=== PATIENT | male | born 1940 | race Asian ===

== ENCOUNTER 2016-09-03 09:07 | Inpatient (IN) | payer MEDICARE, OTHER ==
[~2016-09-03] VITALS: Ht 162.6 cm; Wt 84.4 kg
[2016-09-03] MEDS ORDERED: SODIUM CHLORIDE FLUSH 10ML SYR IVF ONE (09:30)
[2016-09-03] MEDS ORDERED: SODIUM CHLORIDE 0.9% 1,000ML IVBOLUS ONE (09:30)
[2016-09-03] MEDS ORDERED: ADENOSINE 6 MG/2 ML IVPush ONE (09:30)
[2016-09-03] MEDS ORDERED: ADENOSINE 6 MG/2 ML ONE (09:48)
[2016-09-03] MEDS ORDERED: DILTIAZEM 5 MG/ML, 5ML ONE (09:54)
[2016-09-03] MEDS ORDERED: DILTIAZEM 5 MG/ML, 5ML IVPush ONE (10:00)
[2016-09-03 10:20] LABS: PATH.CAST-FLAG NOT PRESENT; SPERM-FLAG NOT PRESENT; SRC-FLAG NOT PRESENT; XTAL-FLAG NOT PRESENT; YLC-FLAG NOT PRESENT
[2016-09-03 10:22] LABS: ASPARTATE AMINO TRANSFERASE 30 U/L (15-37); BLOOD UREA NITROGEN 26 mg/dL (7-18)
[2016-09-03 10:29] LABS: IS PT STATUS REG ER OR PRE ER? YES
[2016-09-03 10:32] LABS: DIFF TOTAL CELLS COUNTED 100 CELL DIFF
[2016-09-03 10:34] LABS: VERIFY COUNTS? YES
[2016-09-03] MEDS ORDERED: CEFTRIAXONE PMX 1GM/50ML 50 ML IVPB ONE (11:00)
[2016-09-03] MEDS ORDERED: MAGNESIUM SULFATE PMX 2GM/50ML 50 ML IV ONE ×2 (11:00→12:30)
[2016-09-03] MEDS ORDERED: ASPIRIN 81 MG TABLET CHEW ONE (11:13)
[2016-09-03] MEDS ORDERED: CEFTRIAXONE PMX 1GM/50ML 50 ML ONE (11:13)
[2016-09-03] MEDS ORDERED: ONDANSETRON ODT 4 MG PO PRN (12:30)
[2016-09-03] MEDS ORDERED: ACETAMINOPHEN 325 MG TABLET PO PRN (12:30)
[2016-09-03] MEDS ORDERED: ONDANSETRON 2MG/ML, 2ML IVPush PRN (12:30)
[2016-09-03 13:05] VITALS: BP 119/79
[2016-09-03] MEDS: POTASSIUM CHLORIDE 20 MEQ in SODIUM CHLORIDE 0.9% 1,000 ML IV SCH ×2 (13:23→23:42)
[2016-09-03] MEDS: ENOXAPARIN 40 MG/0.4 ML SQ SCH (13:24)
[2016-09-03 15:12] LABS: IS PT STATUS REG ER OR PRE ER? NO
[2016-09-03 19:31] VITALS: BP 127/79
[2016-09-03 21:03] LABS: IS PT STATUS REG ER OR PRE ER? NO
[2016-09-04 02:25] VITALS: BP 108/70
[2016-09-04 05:04] LABS: ASPARTATE AMINO TRANSFERASE 32 U/L (15-37); BLOOD UREA NITROGEN 24 mg/dL (7-18)
[2016-09-04 05:13] LABS: IS PT STATUS REG ER OR PRE ER? NO
[2016-09-04] MEDS ORDERED: ASPIRIN 81 MG TABLET EC PO SCH (06:00)
[2016-09-04 07:47] VITALS: BP 128/82
[2016-09-04] MEDS: POTASSIUM CHLORIDE 20 MEQ in SODIUM CHLORIDE 0.9% 1,000 ML IV SCH ×2 (09:00→15:40)
[2016-09-04] MEDS: ASPIRIN 81 MG TABLET EC PO SCH (09:05)
[2016-09-04] MEDS: CEFTRIAXONE PMX 1GM/50ML 50 ML IV SCH (12:19)
[2016-09-04 12:45] VITALS: BP 155/92
[2016-09-04] MEDS: ENOXAPARIN 40 MG/0.4 ML SQ SCH (13:30)
[2016-09-04 13:34] VITALS: BP 129/82
[2016-09-04] MEDS ORDERED: TAMS0.4C2 PO (16:21)
[2016-09-04] MEDS ORDERED: SIMV20TA3 PO (16:21)
[2016-09-04] MEDS ORDERED: FINA5TAB4 PO (16:21)
[2016-09-04] MEDS: SODIUM CHLORIDE 0.9% 1,000 ML IV SCH (16:39)
[2016-09-04 20:00] VITALS: BP 137/91
[2016-09-04] MEDS ORDERED: SIMVASTATIN 20 MG TABLET PO SCH (21:00)
[2016-09-05 01:41] VITALS: BP 142/94
[2016-09-05 05:12] LABS: BLOOD UREA NITROGEN 17 mg/dL (7-18)
[2016-09-05 05:17] LABS: ASPARTATE AMINO TRANSFERASE 33 U/L (15-37)
[2016-09-05] MEDS: SODIUM CHLORIDE 0.9% 1,000 ML IV SCH (06:05)
[2016-09-05] MEDS ORDERED: REGADENOSON 0.4 MG/5 ML SYRINGE ONE (07:57)
[2016-09-05] MEDS: ASPIRIN 81 MG TABLET EC PO SCH (08:20)
[2016-09-05] MEDS ORDERED: TAMSULOSIN 0.4 MG CAP.ER.24H PO SCH (09:00)
[2016-09-05] MEDS ORDERED: FINASTERIDE 5 MG TABLET PO SCH (09:00)
[2016-09-05 11:24] VITALS: BP 150/90
[2016-09-05] MEDS: CEFTRIAXONE PMX 1GM/50ML 50 ML IV SCH (11:37)
[2016-09-05 13:57] VITALS: BP 167/99
[2016-09-05] MEDS: ENOXAPARIN 40 MG/0.4 ML SQ SCH (13:58)
[2016-09-05] MEDS ORDERED: CEFD300C37 PO (14:49)
[2016-09-06] MEDS ORDERED: ASPI-650 PO (15:44)
== END 2016-09-05 17:44 | disposition home or self-care (01) | DRG 872 ==
LOC: ED 09:32 → EDIP 11:11 → 5SO 12:47
PROVIDERS: ADMIT Internal Medicine; ATTEND Internal Medicine
DX: A41.9 Sepsis, unspecified organism (principal); E78.5 Hyperlipidemia, unspecified; E83.39 Other disorders of phosphorus metabolism; E83.42 Hypomagnesemia; E87.6 Hypokalemia; I48.0 Paroxysmal atrial fibrillation; N30.91 Cystitis, unspecified with hematuria; R33.8 Other retention of urine; N40.1 Benign prostatic hyperplasia with lower urinary tract symptoms; B96.20 Unspecified Escherichia coli [E. coli] as the cause of diseases classified elsewhere
CPT/HCPCS: 36415; 71010; 78452; 80053; 80061; 81001; 83605; 83735; 84100; 84145; 84436; 84443; 84484; 85025; 85610; 87040; 87077; 87086; 87186; 93005; 93017; 93306; 96361; 96365; 96367; 96375; J0696; J1650; J2785; J3480; A9502; C9898; J3475; J7030